=== PATIENT | female | born 1985 | race Caucasian/White ===

== ENCOUNTER 2017-06-21 18:58 | Emergency (ER) | payer BC ==
[2017-06-21 19:07] VITALS: BP 119/81
[2017-06-21] MEDS ORDERED: CEPHALEXIN 250 MG CAPSULE PO ONE (19:09)
--- NOTE | 2017-06-21 19:14 | ED Physician Documentation ---
General Adult - HISTORIAN Historian: patient - HPI Stated Complaint: Sores in Mouth Chief Complaint: General Adult Onset: days ago (1) Timing: still present Severity: moderate Further Comments: yes (Pt is a 32 yo female with c/o sores in mouth x 1 day. Pt notes that she drank from the same cup as someone else yesterday and wonder' s if that may be the source of the sores.) - ROS CONST: no problems EYES/ENT: other (lesions in mouth) CVS/RESP: none GI/: none MS/SKIN/LYMPH: other (sores in mouth) - PAST HX Past History: other (cholecystectomy) Allergies/Adverse Reactions: Allergies Allergy/AdvReac Type Severity Reaction Status Date / Time No Known Allergies Allergy Verified 06/21/17 18:59 Home Medications: Ambulatory Orders Medication Instructions Recorded NK [NK] 06/21/17 - SOCIAL HX Smoking History: cigarettes - FAMILY HX Family History: No - VITAL SIGNS Vital Signs: Vital Signs Temp Pulse Resp BP Pulse Ox 98.1 F 90 18 119/81 98 06/21/17 18:58 06/21/17 18:58 06/21/17 18:58 06/21/17 18:58 06/21/17 18:58 - REVIEWED ASSESSMENTS Nursing Assessment Reviewed: Yes Vitals Reviewed: Yes Progress - Progress Progress: Rx Acyclovir 200 mg. Take 2 tablets every 8 hrs for 7 days. Rx Keflex 500 mg. Take one every 8 hrs for 7 days. ED Results Lab/Radiology - Orders Orders: ED Orders Category Date Time Status Cephalexin [Keflex] Med 06/21/17 19:09 Once 500 mg PO NOW ONE General Adult Physical Exam - PHYSICAL EXAM GENERAL APPEARANCE: mild distress (anxious) EENT: other (multiple raised punctate lesions on tongue, ? viral) NECK: normal inspection, supple RESPIRATORY: no resp distress CVS: reg rate & rhythm, heart sounds normal BACK: normal inspection SKIN: warm/dry, normal color EXTREMITIES: non-tender, normal range of motion NEURO: oriented X3, motor nml, sensation nml Discharge Clincal Impression: oral lesions, viral vs bacterial Referrals: Primary Doctor,No [Primary Care Provider] - Condition: Good Disposition: 01 HOME, SELF-CARE Decision to Admit: NO Decision Time: 19:32
[2017-06-21] MEDS ORDERED: ACYCLOVIR 200 MG CAPSULE PO SCH (20:00)
== END 2017-06-21 19:30 | disposition home or self-care (01) ==
LOC: ED 18:58
DX: K13.70 Unspecified lesions of oral mucosa (principal)
CPT/HCPCS: 99283

== ENCOUNTER 2017-07-14 10:28 | Emergency (ER) | payer BC ==
[2017-07-14 10:41] VITALS: BP 118/83
--- NOTE | 2017-07-14 10:45 | ED Physician Documentation ---
General Adult - HISTORIAN Historian: patient - HPI Stated Complaint: possible STD Chief Complaint: General Adult (want HIV testing) Additional Information: 32yo white female who wants to be tested for HIV and AIDs. NO symptoms noted. Has not been exposed that she is aware of. Is not using any contraception. LNMP July 06. Patient states that her partner is doing OK without symptoms. She is trying to get . Patient denies any skin rash, vaginal irritation, abnl vaginal discharge, or urinary symptoms - ROS CONST: no problems. denies: fever, chills - PAST HX Past History: none Other History: none Surgeries/Procedures: cholecystectomy Allergies/Adverse Reactions: Allergies Allergy/AdvReac Type Severity Reaction Status Date / Time No Known Allergies Allergy Verified 07/14/17 10:42 Home Medications: Ambulatory Orders Medication Instructions Recorded NK [NK] 06/21/17 - SOCIAL HX Smoking History: less than 1 pack/day (1/2 ppd) Alcohol Use: none Drug Use: marijuana - FAMILY HX Family History: No - VITAL SIGNS Vital Signs: Vital Signs Temp Pulse Resp BP Pulse Ox 96.0 F L 105 H 16 118/83 99 07/14/17 10:38 07/14/17 10:38 07/14/17 10:38 07/14/17 10:38 07/14/17 10:38 - REVIEWED ASSESSMENTS Nursing Assessment Reviewed: Yes Vitals Reviewed: Yes Progress - Progress Progress: Patient refused testing for other STD, just wants HIV testing done. General Adult Physical Exam - PHYSICAL EXAM GENERAL APPEARANCE: [id number] N RESPIRATORY: no resp distress, chest non-tender, breath sounds normal CVS: reg rate & rhythm, heart sounds normal, equal pulses, no murmur, no gallop , PMI nml, no JVD, no friction rub, 24 ABDOMEN: soft, no organomegaly, normal bowel sounds, no abdominal bruit, no distension BACK: normal inspection, no CVA tenderness SKIN: normal color, warm/dry, NR, INT, PAL, DR NEURO: mood/affect nml, cognition normal Discharge Clincal Impression: Encounter for screening for HIV Referrals: Primary Doctor,No [Primary Care Provider] - 2 Days Additional Instructions: Have your partner checked for possible HIV if you are concerned and want to make sure that your are not being exposed. Condition: Stable Disposition: 01 HOME, SELF-CARE Decision to Admit: NO Date of Decison to Admit: 07/14/17 Decision Time: 10:55
== END 2017-07-14 11:05 | disposition home or self-care (01) ==
LOC: ED 10:28
DX: Z11.4 Encounter for screening for human immunodeficiency virus [HIV] (principal); Z20.2 Contact with and (suspected) exposure to infections with a predominantly sexual mode of transmission
CPT/HCPCS: 86703

== ENCOUNTER 2017-08-12 10:05 | Emergency (ER) | payer BC ==
[2017-08-12 10:25] VITALS: BP 135/56
--- NOTE | 2017-08-12 11:07 | ED Physician Documentation ---
General Adult - HISTORIAN Historian: patient - HPI Stated Complaint: Infection in skin has ruptured this morning Chief Complaint: General Adult Additional Information: Red spot on abdomen for more than a week. Began to drain last night. No treatment. - ROS CONST: no problems - PAST HX Past History: none Allergies/Adverse Reactions: Allergies Allergy/AdvReac Type Severity Reaction Status Date / Time No Known Allergies Allergy Verified 08/12/17 10:26 Home Medications: Ambulatory Orders Medication Instructions Recorded Sulfamethoxazole/Trimethoprim 1 each PO BID #20 tab 08/12/17 [Bactrim Ds] - SOCIAL HX Smoking History: cigarettes - FAMILY HX Family History: No - VITAL SIGNS Vital Signs: Vital Signs Temp Pulse Resp BP Pulse Ox 74 18 135/56 98 08/12/17 10:05 08/12/17 10:05 08/12/17 10:05 08/12/17 10:05 - REVIEWED ASSESSMENTS Nursing Assessment Reviewed: Yes Vitals Reviewed: Yes General Adult Physical Exam - PHYSICAL EXAM GENERAL APPEARANCE: mild distress EENT: eye inspection normal, ENT inspection normal NECK: normal inspection, supple RESPIRATORY: no resp distress ABDOMEN: soft, other (1-1.5 cm diameter red area with central opening and clear drainage just left of mid abdomen in skin fold) BACK: other (movements w/o pain) SKIN: warm/dry, normal color (except as above) EXTREMITIES: no evidence of injury NEURO: CN's nml as tested, motor nml, sensation nml Discharge Clincal Impression: Cutaneous abscess of abdominal wall Prescriptions: Sulfamethoxazole/Trimethoprim [Bactrim Ds] 1 each PO BID #20 tab Referrals: Primary Doctor,No [Primary Care Provider] - 2 Days Comments: Use thorough handwashing. Take all the antibiotics as prescribed until they are completely gone. Don't share clothing or linens. Condition: Good Disposition: 01 HOME, SELF-CARE Decision to Admit: NO Decision Time: 11:07
== END 2017-08-12 11:13 | disposition home or self-care (01) ==
LOC: ED 10:05
DX: L02.211 Cutaneous abscess of abdominal wall (principal)

== ENCOUNTER 2017-08-23 08:46 | Emergency (ER) | payer BC ==
[2017-08-23] MEDS ORDERED: KETOROLAC TROMETHAMINE 60 MG/2 ML VIAL ONE (09:22)
[2017-08-23] MEDS ORDERED: ORPHENADRINE CITRATE 60 MG/2ML ONE (09:22)
[2017-08-23] MEDS ORDERED: oxyCODONE/ACETAMINOPHEN 5/325 TABLET PO ONE (10:15)
[2017-08-23] MEDS ORDERED: methylPREDNISolone ACETATE 80 MG/ML VIAL IM ONE (10:16)
[2017-08-23] MEDS ORDERED: ONDANSETRON HCL 4 MG TAB.RAPDIS ONE (10:16)
[2017-08-23] MEDS ORDERED: 0.9 % SODIUM CHLORIDE 1,000 ML IV ONE (18:59)
--- NOTE | 2017-08-26 19:16 | Diagnostic Imaging Report ---
[facility] [address] [facility].[address] [address] Report Submission Date: Aug 25, 2017 5:28:05 PM CDT Patient Study Name: JEFFERSON MEDELLIN Date: Aug 23, 2017 9:39:35 AM CDT MRN: [id number] Modality Type: DX Gender: F Description: SPINE : 85 Institution: [facility] Physician: JR RAJAN Examination: Plain film lumbar spine History: PAIN AFTER FALL (Hx) Findings: 3 views of the lumbar spine demonstrate normal height. No anterior compression. No soft tissue abnormalities. Impression: No compression deformity. Electronically signed on Aug 25, 2017 5:28:05 PM CDT by: Jimmy BARBOSA
== END 2017-08-23 10:50 ==
LOC: ED 08:46
DX: M54.5 Low back pain (principal)
CPT/HCPCS: 72100; A9270; J1040; J1885; J2360; J7030; 96372; 99283